=== PATIENT | male | born 1950 | race Caucasian/White ===

== ENCOUNTER 2021-06-02 15:04 | Emergency (ER) | payer MEDICARE, BC ==
[2021-06-02 15:16] VITALS: BP 146/86
--- NOTE | 2021-06-02 15:44 | ED Physician Documentation ---
History of Present Illness - Stated complaint Stated Complaint: FALL,LEFT RIB PX - Chief complaint Chief Complaint: Trauma Ch/Bk - History obtained from History obtained from: Patient - History of Present Illness Timing: How many days ago (5) Pain level max: 5 Pain level now: 3 - Additonal information Additional information: 71-year-old male presents to the emergency department stating that he slipped and fell down stairs about 5 to 6 days ago. Pain was well controlled with Aleve for the first 2 days. He states he has not taken anything for pain the last 2 days. Today he woke up and had pain in his left ribs and left back. Concerned about potential fracture. Worse with movement. Better with rest. No head, neck, back pain otherwise. No numbness or tingling. No loss of bowel or bladder control. Review of Systems Constitutional: denies: Fever, Chills Throat: denies: Sore throat Cardiac: denies: Chest pain / pressure Respiratory: denies: Cough GI: denies: Vomiting, Diarrhea : denies: Dysuria, Frequency, Hesitancy Musculoskeletal: denies: Neck pain, Back pain Neurologic: denies: Headache PD PAST MEDICAL HISTORY - Past Medical History Past Medical History: No Derm: None - Past Surgical History Past Surgical History: No - Present Medications Home Medications: Ambulatory Orders Medication Instructions Recorded Confirmed Lidocaine Patch 5% [Lidoderm Patch] 1 patch TOP DAILY PRN #10 patch 06/02/21 - Allergies Allergies/Adverse Reactions: Allergies Allergy/AdvReac Type Severity Reaction Status Date / Time No Known Drug Allergies Allergy Verified 06/02/21 15:12 - Living Situation Living Situation: reports: With family Living Arrangement: reports: At home - Social History Does the pt smoke?: No Smoking Status: Never smoker - Immunizations Immunizations are current?: Yes PD ED PE NORMAL - Vitals Vital signs reviewed: Yes - General General: Alert and oriented X 3, No acute distress - HEENT HEENT: Moist mucous membranes - Neck Neck: Supple, no meningeal sign - Cardiac Cardiac: RRR - Respiratory Respiratory: No respiratory distress, Clear bilaterally, Other (Mild tenderness over the left lateral ribs, approximately 8 and 9. No crepitus or ecchymosis. Otherwise normal examination of the spine, ribs) - Abdomen Abdomen: Soft, Non tender, Non distended - Derm Derm: Warm and dry - Neuro Neuro: Alert and oriented X 3 - Psych Psych: Normal mood Results - Vitals Vitals: Vital Signs - 24 hr 06/02/21 15:12 Temperature 36.4 C L Heart Rate 72 Respiratory 19 Rate Blood Pressure 146/86 H O2 Saturation 97 Oxygen O2 Source Room air - Rads (name of study) cxr with ribs Radiology: Final report received, EMP read contemporaneously, See rad report (Left eighth and ninth rib fractures) PD MEDICAL DECISION MAKING - ED course Complexity details: reviewed results, re-evaluated patient, considered differential, d/w patient ED course: 71-year-old male with 2 rib fractures, about a week old. He declines any pain medication from home but will take Lidoderm patches. Ambulating without difficulty. Breathing without difficulty. No hypoxia or respiratory distress. Patient counseled regarding signs and symptoms for which I believe and urgent re-evaluation would be necessary. Patient with good understanding of and agreement to plan and is comfortable going home at this time This document was made in part using voice recognition software. While efforts are made to proofread this document, sound alike and grammatical errors may occur. Departure - Departure Disposition: Home, Self Care Clinical Impression: Ribs, multiple fractures Qualifiers: Encounter type: initial encounter Fracture type: closed Laterality: left Qualified Code(s): S22.42XA - Multiple fractures of ribs, left side, initial encounter for closed fracture Condition: Good Instructions: ED Fx Rib Follow-Up: your,doctor in 1 week [Other] Prescriptions: Lidocaine Patch 5% [Lidoderm Patch] 1 patch TOP DAILY PRN #10 patch PRN Reason: pain Comments: Your prescription was sent to [email or web address] in [place]. You do have a left-sided eighth and ninth rib fractures. You can use Motrin or Tylenol or Aleve as needed for pain. Please follow-up with your doctor to ensure proper healing. The lidocaine patches can be used for up to 12 hours. They then need to be off of your skin for 12 hours. Discharge Date/Time: 06/02/21 16:22
--- NOTE | 2021-06-02 16:07 | XRAY Report ---
PROCEDURE: Ribs w/PA Chest LT INDICATIONS: fall, rib pain x 5 days TECHNIQUE: 3 views of the left ribs were acquired, along with a single view chest. COMPARISON: None FINDINGS: Surgical changes and devices: None. Bones and chest wall: Mildly displaced fracture of the posterior lateral aspect of the left ninth rib and possible nondisplaced fracture of the posterior lateral aspect of the left eighth rib. No suspic ious bony lesions. Overlying soft tissues appear unremarkable. Lungs and pleura: No pleural effusions or pneumothorax. Nodular densities overlying the left lung ba ses. Mediastinum: Mediastinal contours appear normal. Heart size is normal. IMPRESSION: Left eighth and ninth rib fractures. Nodular densities overlying the lung bases likely represent nipple shadows. Confirmation with nipple markers and repeat chest radiograph could be performed. Reviewed by: Rashad Solorio DO on 06/02/2021 3:06 PM [facility] Approved by: Rashad Solorio DO on 06/02/2021 3:06 PM [facility] Station ID: [id number]
== END 2021-06-02 16:22 | disposition home or self-care (01) ==
LOC: ED 15:04
DX: S22.42XA Multiple fractures of ribs, left side, initial encounter for closed fracture (principal); W10.9XXA Fall (on) (from) unspecified stairs and steps, initial encounter
CPT/HCPCS: 99282; 99283